=== PATIENT | male | born 1945 | race Caucasian/White ===

== ENCOUNTER 2016-09-17 12:44 | Emergency (ER) | payer MEDICARE ==
[2016-09-17] MEDS ORDERED: NORMAL SALINE 1,000 ML IV ONE ×2 (13:25→15:09)
[2016-09-17] MEDS ORDERED: ONDANSETRON HCL/PF 2 MG/ML VIAL IV ONE (13:26)
--- NOTE | 2016-09-17 13:30 | ERNOTE ---
<Nan Ross - Last Filed: 09/17/16 20:05> Medical Problem HPI - General Chief Complaint: Nausea/Vomiting Time Seen by Provider: 09/17/16 13:20 Source: patient Exam Limitations: no limitations - Immun/Allergies/Home Medications Immunizations: IMMUNIZATION HX Immunizations Up to Date No History of Influenza Vaccine Yes Hx Pneumococcal Vaccination Yes Allergies/Adverse Reactions: Allergies No Known Allergies Allergy (Verified 09/17/16 13:16) Home Medications: HOME MEDICATIONS Diltiazem HCl [Diltiazem 12Hr ER] 60 mg PO 09/17/16 [Last Taken Unknown] Fluticasone Propionate [Flonase] 1 spray NS 09/17/16 [Last Taken Unknown] Ondansetron [Zofran Odt] 4 mg PO Q6H PRN #7 tab 09/17/16 [Last Taken Unknown] Simvastatin [Zocor] 10 mg PO 09/17/16 [Last Taken Unknown] - History of Present History Narrative: Presents to the emergency room from the clinic for 3 days of not having eaten anything. Patient started having nausea vomiting and diarrhea approximately 3 days ago and he has not had anything to eat or drink since. He presented to the clinic and felt diaphoretic and weak and was worth O dynamically unstable and was referred to the emergency room. I saw patient he felt better however still felt weak. He also complains of nausea. Review of Systems - Review of Systems Constitutional: Present: weakness, fatigue, malaise EYE: Present: no symptoms reported ENT: Present: no symptoms reported Respiratory: Present: no symptoms reported Cardiology: Present: no symptoms reported Gastrointestinal/Abdominal: Present: See HPI, nausea, vomiting, diarrhea Genitourinary: Present: no symptoms reported Musculoskeletal: Present: no symptoms reported Skin: Present: no symptoms reported - Patient's Past Medical History Patient History - Cardiac/Respiratory: Hypertension, Hyperlipidemia Patient History - Cancer: No Hx of Cancer Patient History - Surgical Procedures: Cataracts Patient History - Other: None - Social History Living Situations: spouse Abuse History: No History of abuse Psych History: No pertinent hx Smoking Status: Former smoker Alcohol Use: none Drug Use: none - Immunizations Immunizations Up to Date: No Hx Pneumococcal Vaccination: Yes History of Influenza Vaccine: Yes Physical Exam - Physical Exam General Appearance: Present: wd/wn, alert, no apparent distress Ears, Nose, Throat: Present: normal ENT inspection Neck: Present: normal inspection, nontender Respiratory: Present: no respiratory distress, normal breath sounds, no accessory muscle use, chest nontender, lungs clear Cardiovascular/Chest: Present: regular rate, rhythm, no murmur, normal peripheral pulses Gastrointestinal/Abdominal: Present: normal bowel sounds, nontender, nondistended, soft, no organomegaly, other - patient does have some suprapubic tenderness on aggressive palpation but overall this is a benign belly. ED Progress - Results and Orders Patient's Lab Results:: I have reviewed the patient's lab results. - Vital Signs Patient's Vital Signs:: I have reviewed the patient's vital signs. Vital Signs: Vital Signs 09/17/16 13:09 Temperature 36.1 C L Pulse Rate 72 Respiratory 15 Rate Blood Pressure 123/85 O2 Sat by Pulse 95 Oximetry - Progress/Reassessment Chief Complaint: Nausea/Vomiting - Transfer of Care Physician Sign Out: Nan Ross Receiving Physician: Cisco Lira Pending Results: CT/MRI results, Pain-control Expected Disposition: Discharge Departure - Departure Clinical Impression: Gastroenteritis Abdominal pain Qualifiers: Abdominal location: generalized Qualified Code(s): R10.84 - Generalized abdominal pain Condition: Good Instructions: Rehydration, Adult, Food Choices to Help Relieve Diarrhea, Adult , Viral Gastroenteritis, Adult, Pbiy-hj-Aloh Additional Instructions: CLEAR LIQUID DIET UNTIL NO MORE DIARRHEA FOR 6-8 HOURS THEN GRADUALLY START SIMPLE SOLIDS, SO CALLED B.R.A.T. DIET ( BANANAS , RICE , APPLESAUCE, TOAST OR SALTINES) . INCREASE THE DIET GRADUALLY FOR THERE. YOGURT ALSO MAY HELP. RECHECK IF WORSE OR NOT IMPROVING IN 2-3 DAYS. USE THE ZOFRAN DIRECTED TO CONTROL VOMITING SO YOU CAN KEEP THE FLUIDS DOWN. Referrals: Flavia Langstno MD [Primary Care Provider] - Prescriptions: Ondansetron [Zofran Odt] 4 mg PO Q6H PRN #7 tab PRN Reason: Vomiting <Cisco Lira - Last Filed: 09/17/16 22:08> Medical Problem HPI - Narrative Date of Service: 09/17/16 - Immun/Allergies/Home Medications Immunizations: IMMUNIZATION HX Immunizations Up to Date No History of Influenza Vaccine Yes Hx Pneumococcal Vaccination Yes ED Progress - Vital Signs Patient's Vital Signs:: I have reviewed the patient's vital signs. Vital Signs: Vital Signs 09/17/16 09/17/16 09/17/16 15:22 16:30 17:22 Temperature 36.5 C Pulse Rate 81 73 81 Respiratory 20 16 17 Rate Blood Pressure 135/92 147/85 126/93 O2 Sat by Pulse 93 94 96 Oximetry 09/17/16 09/17/16 09/17/16 18:00 18:29 19:26 Temperature 36.6 C Pulse Rate 81 78 78 Respiratory 16 16 16 Rate Blood Pressure 124/70 131/73 129/72 O2 Sat by Pulse 97 97 97 Oximetry 09/17/16 09/17/16 09/17/16 20:00 20:22 21:13 Temperature Pulse Rate 74 80 78 Respiratory 16 16 16 Rate Blood Pressure 119/76 126/71 135/73 O2 Sat by Pulse 97 97 97 Oximetry 09/17/16 21:47 Temperature Pulse Rate 84 Respiratory 14 Rate Blood Pressure 133/76 O2 Sat by Pulse 97 Oximetry - CT/Ultrasound CT/Ultrasound Narrative: PATIENT RADIOLOGY STUDY REPORT Patient Patient Name:GAVIN ARREDONDO Date: 1945 Sex: M Order Number: [id number] Unique Exam ID: [id number] Exam Requested: ABDPELW - CT Abdomen/Pelvis W/ Contrast Date Scheduled: Study Priority: Requesting Service: Requesting Physician: Nan Ross Reason for Exam: R/O SBO Radiological Report : Exam Date: 09/17/2016 19:01 Ordering Physician: Nan Ross HISTORY: Generalized abdominal pain with nausea and vomiting for three days ENH[address]ED CT SCAN OF THE ABDOMEN AND ENHANCED CT SCAN OF THE PELVIS. COMPARISON: NONE Technique: Initially, multiple axial images were obtained through the abdomen during the portal venous phase of enhancement. Delayed images were obtained from the kidneys down through the pelvis. Coronal reconstructions were obtained. Oral contrast was utilized. Findings: The visualized lung bases are clear. The liver is homogeneous in appearance and I do not see evidence for a focal defect or intrahepatic duct dilatation. The attenuation of the liver is decreased consistent with an element of fatty infiltration. A gallbladder is in place and I do not see evidence for calcified gallstones. The spleen is of normal size and is homogenous in appearance. The adrenal glands are within normal limits. The pancreas is atrophic, but with in normal limits. The abdominal aorta is of normal caliber. I do not see evidence for retroperitoneal adenopathy on this study. The right and left renal parenchyma is normal in appearance. The kidneys demonstrate bilateral symmetric excretion of contrast and the ureters are of normal caliber on delayed images. The stomach is partially distended and is grossly normal appearance. The small bowel is of normal caliber. The appendix is identified and appears normal. The colon is suboptimally evaluated, but I'm not convinced of a definable colon lesion. There is mild diverticulosis involving sigmoid colon without definable diverticulitis. CT scan of pelvis: The urinary bladder is normal in appearance. The prostate is not enlarged. I do not see evidence for free fluid, mass , or adenopathy in the pelvis. A small fat-containing inguinal hernias. Bone windows demonstrate no definable acute osseous abnormality. A preliminary report was provided by [facility] on 09/17/2016 at 1930 hours. IMPRESSION: 1. FATTY INFILTRATION OF THE LIVER. 2. MILD SIGMOID DIVERTICULOSIS WITHOUT DEFINABLE DIVERTICULITIS. 3. CLINICAL CORRELATION IS REQUIRED. Electronically signed by Matias Fernandez M.D.. Approved by: Approval Date: 09-17-2016 Approval Time: 09:40 PM THIS REPORT WAS RECEIVED FROM THE [employer] SYSTEM - Progress/Reassessment Progress:: Improved
[2016-09-17 13:38] LABS: Hematocrit 53.4 % (42.0-52.0); Mean Cell Volume 88.4 fl (78-100); Mean Corpuscular Hemoglobin 29.8 pg (27-31); Mean Corpuscular Hgb Conc 33.7 g/dl (32-36); Mean Platelet Volume 11.2 fl (6.0-9.5); Neutrophil # 9.1 K/mm3 (1.3-6.0); Neutrophil % 79.5 % (42-75.0); Platelet Count 286 K/mm3 (150-450); Red Blood Count 6.04 M/mm3 (4.7-6.0); Red Cell Distribution Width 12.9 % (11.5-14.0); White Blood Count 11.4 K/mm3 (4.0-10.5)
[2016-09-17] MEDS ORDERED: ONDANSETRON HCL/PF 2 MG/ML VIAL ONE (13:47)
[2016-09-17 13:51] LABS: Albumin * 3.7 gm/dl (3.4-5.0); Anion Gap 15.4 mmol/L (6.8-13.8); BUN/Creatinine Ratio 15.2 (9.0-21.6); Bilirubin, Total 0.6 mg/dL (0.0-1.1); Ca. Corrected For Albumin 9.2 mg/dL (8.4-10.2); Calcium * 9.3 mg/dL (7.9-10.9); Carbon Dioxide 24.3 mmol/L (24-32.6); Potassium 3.7 mmol/L (3.4-4.6); Total Protein 8.2 gm/dL (6.2-8.2)
--- OUTSIDE RECORDS SUMMARY | 2016-09-17 14:13 | XMS REPORT | Continuity of Care Document ---
:1945 Author Organization [facility] ([facility]) Address [address] [place] [address] Phone [phone] Care Team Providers Name Role Phone Flavia Langston Primary Care Provider [phone] Source Comments This disclosure is being made pursuant to the Care Everywhere program, applicable federal and state laws, and may not contain all informaitonavailable regarding this patient.[facility] ([facility]) Active Allergies and Adverse Reactions No Active Allergies Current Medications Not on file Active Problems Not on file Social History Tobacco Use Types Packs/Day Years Used Date Never Assessed Last Filed Vital Signs Vital Sign Reading Time Taken Blood Pressure 155/99 07/14/2007 2:57 PM CDT Pulse 78 07/14/2007 2:57 PM CDT Temperature - - Respiratory Rate - - Height 1.854 m (6' 1") 07/14/2007 2:57 PM CDT Weight 102.059 kg (225 lb) 07/14/2007 2:57 PM CDT Body Mass Index 29.69 07/14/2007 2:57 PM CDT Oxygen Saturation - - Plan of Care Health Maintenance Due Date Last Done Comments HCV Screening 1945 Hepatitis B Vaccine (1 of 3 - Primary Series) 1945 Tdap Vaccine 1956 Lipid Disorder Screening 1963 Td Vaccine 1963 Colonoscopy 1995 Prostate Cancer Screening 1995 Zoster Vaccine 2005 Pneumococcal Vaccine (1 of 2 - PCV13) 2010 Influenza Vaccine: Seasonal (#1) 11/17/2015 Results from Last 3 Months Not on file
[2016-09-17] MEDS ORDERED: DIATRIZOATE MEGLUMINE, SODIUM 30 ML BTL ONE (16:21)
[2016-09-17] MEDS ORDERED: DIATRIZOATE MEGLUMINE, SODIUM 30 ML BTL PO ONE (16:28)
[2016-09-17 18:37] LABS: Urine Bilirubin 1 mg/dl (NEGATIVE); Urine Ketone 15 mg/dL (NEGATIVE); Urine Nitrite Negative (NEGATIVE); Urine Protein 30 mg/dL (NEGATIVE); Urine Specific Gravity >=1.030 SP.GR. (1.005-1.030); Urine Urobilinogen Normal (NORMAL); Urine pH 5.5 pH (5.0-7.0)
[2016-09-17 18:55] LABS: Urine Blood 10 /ul (NEGATIVE); Urine Color Yellow
[2016-09-17 18:56] LABS: Urine Appearance Cloudy; Urine Bacteria None Seen; Urine Mucus Few - 1+; Urine RBC 0-5 /hpf (0-5); Urine WBC None Seen /hpf (0-5)
[2016-09-17 22:30] VITALS: BP 134/76
== END 2016-09-17 22:28 | disposition home or self-care (01) ==
LOC: ER 12:44
DX: A08.4 Viral intestinal infection, unspecified (principal); R10.84 Generalized abdominal pain
CPT/HCPCS: 36415; 74020; 74177; 80053; 81001; 83605; 85025; 96374; 99284; J2405